=== PATIENT | male | born 1975 | race Caucasian/White ===

== ENCOUNTER 2021-07-17 13:24 | Day surgery (SDC) | payer OTHER ==
[~2021-07-17] VITALS: Ht 185.4 cm; Wt 96.9 kg
--- NOTE | 2021-07-17 16:00 | NUR ---
07/17/21 Krishan Zimmerman 0.25ML OF EPI 1MG/ML ADDED TO 50ML OF BUPIVICAINE 0.5% TO CREATE A LOCAL SOLUTION OF BUPIVICAINE 0.5% WITH EPI 1:200,000.
== END 2021-07-17 17:38 | disposition home or self-care (01) ==
LOC: ORSCSDS 13:24
PROVIDERS: Podiatrist Foot & Ankle Surgery
PROC: 0LQN0ZZ Repair Right Lower Leg Tendon, Open Approach (ICD-10-PCS; principal; 2021-07-17 14:45)
DX: S86.011A Strain of right Achilles tendon, initial encounter (principal)
CPT/HCPCS: J0171; J0690; J1100; J1885; J2250; J2405; J2704; J3010; J7120